=== PATIENT | female | born 1990 | race Caucasian/White ===

== ENCOUNTER 2019-06-17 15:47 | Emergency (ER) | payer MEDICAID ==
[~2019-06-17] VITALS: Ht 170.2 cm; Wt 68.1 kg
[2019-06-17] MEDS ORDERED: predniSONE 10 MG TABLET PO ONE (17:00)
[2019-06-17] MEDS ORDERED: ALBUTEROL SULFATE 2.5 MG/3 ML NEBU. NEB ONE (17:00)
--- NOTE | 2019-06-17 17:14 | PHYS DOC ---
Past Medical History Past Medical History: Asthma Past Surgical History: No Surgical History Smoking Status: Former Smoker Alcohol Use: Occasionally Adult General Chief Complaint Chief Complaint: COUGH HPI HPI Patient is a 29 year old female who presents with shortness of air, cough for last 2 weeks. Patient states her daughter currently has influenza. She states that she went to a urgent care and [place] where she lives in a separate that oxygen saturation was in the 80s and stated that she needs to be put on steroids and tried again with her primary care. She states her primary care doctor is out of town. She states they did put her on Levaquin. She is taken 1 dose of Levaquin. She states when she talks too much and she is up and moving and she gets very short of air. She has a history of asthma. She states that the urgent care where she was seen yesterday told her that she had bilateral pneumonia. Review of Systems Review of Systems Respiratory: cough or shortness of breath [] All other systems were reviewed and found to be within normal limits, except as documented in this note. Current Medications Current Medications Current Medications Medications (Trade) Dose Ordered Sig/Yue Start Time Stop Time Status Last Admin Dose Admin Albuterol Sulfate (Ventolin Neb Soln) 2.5 mg 1X ONCE 06/17/19 17:00 06/17/19 17:01 DC 06/17/19 17:18 2.5 MG Prednisone (Prednisone) 50 mg 1X ONCE 06/17/19 17:00 06/17/19 17:01 DC 06/17/19 17:12 50 MG Allergies Allergies Allergies Coded Allergies Type Severity Reaction Last Updated Verified dextromethorphan Allergy Severe THROAT CLOSES FROM DM IN COUGH SYRUP 06/17/19 Yes Physical Exam Physical Exam Constitutional: Well developed, well nourished, no acute distress, non-toxic appearance. [] HENT: Normocephalic, atraumatic, bilateral external ears normal, oropharynx moist, no oral exudates, nose normal. [] Eyes: PERRLA, EOMI, conjunctiva normal, no discharge. [] Neck: Normal range of motion, no tenderness, supple, no stridor. [] Cardiovascular:Heart rate regular tachy rhythm, no murmur [] Lungs & Thorax: Bilateral breath sounds inspiratory and expiratory wheezes to auscultation [] Abdomen: Bowel sounds normal, soft, no tenderness, no masses, no pulsatile masses. [] Skin: Warm, dry, no erythema, no rash. [] Back: No tenderness, no CVA tenderness. [] Extremities: No tenderness, no cyanosis, no clubbing, ROM intact, no edema. [] Neurologic: Alert and oriented X 3, normal motor function, normal sensory function, no focal deficits noted. [] Psychologic: Affect normal, judgement normal, mood normal. [] Current Patient Data Vital Signs Vital Signs Date Time Temp Pulse Resp B/P (MAP) Pulse Ox O2 Delivery O2 Flow Rate FiO2 06/17/19 18:24 94 18 119/65 (83) 97 Room Air 06/17/19 16:42 98.4 98.4 Lab Values Laboratory Tests Test 06/17/19 17:10 Influenza Type A Antigen Negative (NEGATIVE) Influenza Type B Antigen Negative (NEGATIVE) EKG EKG [] Radiology/Procedures Radiology/Procedures [] Course & Med Decision Making Course & Med Decision Making Pertinent Labs and Imaging studies reviewed. (See chart for details) Heart rate slightly tachycardic but otherwise vital signs within normal limits. She is 97% on room air. She states she has been eating and drinking appropriately. Take his heart to take a deep breath which takes a deep breath at times it will hurt. Her cough is nonproductive. She denies chest pain, abdominal pain, nausea, vomiting, diarrhea, fever, dizziness, headache, syncope, weakness, numbness or tingling. Lungs have inspiratory and expiratory wheezes in the upper lobes and in lower lobes. Skin pink warm and dry. Ambulatory with steady gait. Speaks in full clear sentences. Alert and oriented. X-ray read as atypical pneumonia by Dr Rodríguez. Patient to continue taking Levaquin as it was prescribed to her and I will add Tesselon perles and medrol dose pack. Patient heart rate has come down and her O2 saturation remains normal. [] Dragon Disclaimer Dragon Disclaimer This electronic medical record was generated, in whole or in part, using a voice recognition dictation system. Departure Departure Impression: Primary Impression: Pneumonia Disposition: 01 HOME, SELF-CARE Condition: STABLE Referrals: UNKNOWN PCP NAME (PCP) Patient Instructions: Pneumonia, Adult Additional Instructions: Continue taking Levaquin as prescribed. Call your doctor for follow up care. Take all medications as prescribed. If you began having increased soa go to the nearest ED. Scripts Guaifenesin/Codeine Phosphate (GUAIFENESIN-CODEINE SYRUP) 118 Ml Liquid 5 ML PO Q6HRS, #120 ML Prov: CELY TEAGUE APRN 06/17/19 Albuterol Sulfate (PROAIR HFA INHALER) 8.5 Gm Hfa.aer.ad 1 PUFF INH PRN Q6HRS PRN for SHORTNESS OF BREATH, #1 INHALER 0 Refills Prov: CELY TEAGUE APRN 06/17/19 Methylprednisolone (MEDROL) 4 Mg Tab.ds.pk 1 PKG PO UD, #1 PKG Prov: CELY TEAGUE APRN 06/17/19 Problem Qualifiers Primary Impression: Pneumonia Pneumonia type: due to unspecified organism Laterality: unspecified laterality Lung location: unspecified part of lung Qualified Codes: J18.9 - Pneumonia, unspecified organism CELY TEAGUE APRN Jun 17, 2019 17:14
[2019-06-17 18:02] LABS: INFLUENZA A PATIENT NEGATIVE (NEGATIVE); INFLUENZA B PATIENT NEGATIVE (NEGATIVE)
[2019-06-17] MEDS ORDERED: BENZ100C PO (18:21)
[2019-06-17] MEDS ORDERED: ALBU2.5V8 INH (18:21)
[2019-06-17] MEDS ORDERED: METH4TAB2 PO (18:21)
[2019-06-17 18:24] VITALS: BP 119/65
[2019-06-17] MEDS ORDERED: GUAI118L13 PO (18:43)
--- NOTE | 2019-06-17 20:32 | RAD ---
Exam: Chest 2 views INDICATION: Cough TECHNIQUE: Frontal and lateral views the chest Comparisons: None FINDINGS: The cardiomediastinal silhouette and pulmonary vessels are within normal limits. Patchy airspace disease at the right lung base. No pleural effusion. IMPRESSION: Patchy airspace disease at the right lung base may represent developing consolidative process. Electronically signed by: Angela Foreman MD (06/17/2019 8:29 PM) [id number]
== END 2019-06-17 19:20 | disposition home or self-care (01) ==
LOC: ER 15:47
DX: J18.9 Pneumonia, unspecified organism (principal); J45.909 Unspecified asthma, uncomplicated; Z87.891 Personal history of nicotine dependence; Z88.8 Allergy status to other drugs, medicaments and biological substances
CPT/HCPCS: 71046; 87804; 94640; 99284; J7512; J7613